=== PATIENT | female | born 1985 | race American Indian/Alaskan Native ===

== ENCOUNTER 2018-08-18 11:55 | Emergency (ER) | payer MEDICAID, OTHER ==
[2018-08-18 12:01] VITALS: BMI 20.6
[2018-08-18 12:07] VITALS: BP 123/89; PULSE 84; RESP 17; TEMP 98.3; O2SAT 100
--- NOTE | 2018-08-18 12:36 | C.PDOC ---
History Of Present Illness Pt c/o right knee pain. Denies injury. Pt states that chronic, intermittent pain b/l knees. Time Seen by Provider: 08/18/18 12:21 Chief Complaint (Nursing): Lower Extremity Problem/Injury History Per: Patient Onset/Duration Of Symptoms: Days (4) Current Symptoms Are (Timing): Still Present Severity: Moderate Additional History Per: Prior Records - Knee Alleviating Factor(s): OTC Pain Medication Past Medical History Reviewed: Historical Data, Nursing Documentation, Vital Signs Vital Signs: Last Vital Signs Temp 98.3 F 08/18/18 12:01 Pulse 84 08/18/18 12:01 Resp 17 08/18/18 12:01 BP 123/89 08/18/18 12:01 Pulse Ox 100 08/18/18 12:01 - Medical History PMH: No Chronic Diseases Family History: States: Unknown Family Hx - Social History Hx Tobacco Use: No Hx Alcohol Use: Yes Hx Substance Use: No - Immunization History Hx Tetanus Toxoid Vaccination: Yes Hx Influenza Vaccination: No Hx Pneumococcal Vaccination: No Review Of Systems Except As Marked, All Systems Reviewed And Found Negative. Constitutional: Negative for: Fever, Weakness Cardiovascular: Negative for: Chest Pain Respiratory: Negative for: Shortness of Breath, Hemoptysis Gastrointestinal: Negative for: Vomiting, Abdominal Pain Musculoskeletal: Negative for: Neck Pain, Back Pain, Leg Pain, Foot Pain Skin: Negative for: Rash Neurological: Negative for: Weakness, Numbness Physical Exam - Physical Exam Appears: Non-toxic, No Acute Distress Skin: Normal Color, Warm, Dry, No Rash Head: Atraumatic, Normacephalic Eye(s): bilateral: Normal Inspection, PERRL, EOMI Neck: Normal ROM, Supple Extremity: Normal ROM, Tenderness (mild anterior soft tissue. No scout tenderness.), No Pedal Edema, No Calf Tenderness, No Deformity, No Swelling Extremity: Bilateral: Normal Color And Temperature Neurological/Psych: Oriented x3, Normal Motor, Normal Sensation ED Course And Treatment O2 Sat by Pulse Oximetry: 100 Pulse Ox Interpretation: Normal Reassessment Condition: Improved Disposition Counseled Patient/Family Regarding: Diagnosis, Need For Followup, Rx Given - Disposition Disposition: HOME/ ROUTINE Disposition Time: 12:37 Condition: STABLE Additional Instructions: Follow up with your primary doctor for further evaluation and treatment, including to check for autoimmune diseases (such as Lupus or Rheumatoid Arthritis) if symptoms persist or recur. Return to the ER if you develops redness, swelling, fever, worsening of symptoms or if you have any other concerns. Prescriptions: Naproxen 375 mg PO BID PRN #30 tablet PRN Reason: Pain, Moderate (4-7) Instructions: Knee Pain (DC) - Clinical Impression Clinical Impression: Knee pain
== END 2018-08-18 12:43 | disposition home or self-care (01) ==
LOC: C.ER 11:55
DX: M25.561 Pain in right knee (principal)